=== PATIENT | female | born 2005 | race Caucasian/White ===

== ENCOUNTER 2025-01-12 16:32 | Emergency (ER) | payer SELFPAY ==
[2025-01-12 16:33] VITALS: BP 126/93
[2025-01-12 17:04] VITALS: BMI 19.0
--- NOTE | 2025-01-12 17:20 | ED.GENMED ---
History of Present Illness
General
Chief Complaint: Eye Problems
Source: patient
Time Seen by Provider: 01/12/25 17:11
History of Present Illness
History of Present Illness:
19-year-old female with no significant past medical history presenting to the emergency department for evaluation after she was accidentally kicked in the right eye by a baby foal approximately 30 minutes prior to arrival, initially noted she was
having trouble opening her right eye but states now she is having no trouble opening the eye but does note swelling, ecchymosis and periorbital discomfort. She denies any blurred vision, double vision, headache, loss consciousness, vomiting or any
other injuries. Patient does not wear glasses nor contact lenses. Tetanus vaccine is up-to-date.
Past History
Past History
ED Past Medical History: None
ED Past Surgical History: None
Social History
Tobacco: Non-smoker
Alcohol: None
Drug: None
Personal: Single
Living: with roommate
Employment: Student
Review of Systems
Review of Systems
All Other Systems: ROS reviewed and negative except as documented in HPI and ROS
Phy Exam
Physical Exam
Physical Exam:
GENERAL: Alert , in no apparent distress
EYE: conjunctiva clear, no hyphema, no subconjunctival hemorrhage. There is periorbital ecchymosis that is mostly along the superior orbit as well as the superior eyelid. Both pupils are 4 mm bilateral, PERRL, EOMI, increased discomfort when
looking upwards. Gross vision intact. Fluorescein stain performed which does not show any corneal uptake
Visual Acuity: RIGHT 20/16, LEFT 20/16, BOTH 20/16
Head: Normocephalic atraumatic
NECK: Supple,
ENT: mmm.
LUNGS: no acute respiratory distress
NEUROLOGICAL: Alert and oriented
SKIN: Warm and dry, skin intact.
MUSCULOSKELETAL: well perfused.
PSYCH: Normal and appropriate interaction.
Scores
Heart Failure Risk
Heart Failure Risk Score: Not Applicable
Heart Score for Chest Pain Patients
STEMI patient?: Not applicable
Withdrawal Assessment of Alcohol
Withdrawal Assessment Completed?: Not applicable
Course
Orders/Labs/Results
Orders:
Orders
01/12/25 16:40
CT Orbits W/o Iv Contrast Urgent
Comment:
Reason For Exam: kicked by a horse
01/12/25 18:05
Acetaminophen [Tylenol] 650 mg PO NOW STA
Vital Signs
Initial and Last Documented VS:
Initial Vital Signs
Temp Pulse Resp BP Pulse Ox
98.5 F 105 18 126/93 100
01/12/25 16:33 01/12/25 16:33 01/12/25 16:33 01/12/25 16:33 01/12/25 16:33
Last Documented Vital Signs
Temp Pulse Resp BP Pulse Ox
98.5 F 80 18 114/70 100
01/12/25 16:33 01/12/25 19:14 01/12/25 16:33 01/12/25 19:14 01/12/25 19:14
MDM/Problems Addressed
Differential Diagnosis Includes:
Periorbital contusion, traumatic hyphema, orbital fracture, blowout fracture, vitreous hemorrhage, corneal abrasion
MDM/Problems Addressed:
19-year-old female presenting to the emergency department for evaluation after she was accidentally kicked in the left side of her eye/face, she has mild to moderate right-sided periorbital ecchymosis/edema. No gross visual abnormalities and no
signs of corneal abrasion. Patient declining anything for pain. Will check CT scan of the orbits to further assess. Disposition pending.
*Pulse Oximetry
Patient hypoxic: no
*Critical Care Note
Total Time (30-74mins, 75-104mins- exclusive of procedures): Not Applicable
Patient Management
Escalation/DeEscalation of care consider admission/obs:
No evidence for fracture on CT imaging. Patient advised to remain upright, ice and NSAIDs/tylenol as needed for pain. Aware of return precautions. Stable for discharge home
ED Attending Note
-
Portions of this chart may have been created with voice recognition software.� Occasional wrong word or��sound alike� substitutions may have occurred due to the inherent limitations of voice recognition software.
Discharge Plan
Departure
Patient Disposition: Home (Routine Discharge)
Date of Disposition: 01/12/25
Time of Disposition: 20:02
Patient with high blood pressure during this ER visit?: No
Discharge Problem:
Contusion of right orbit
Instructions: Contusion
Referrals:
NONE,* [Family Provider] -
Interventions
Interventions:
*Risk Screen - Suicide Last Done: 01/12/25 16:37
*General Assessment Last Done: 01/12/25 16:37
*Neglect/Abuse Screening Last Done: 01/12/25 16:37
*ED- Fall Risk Assessment Last Done: 01/12/25 17:04
*ED COVID-19 Vaccine History Last Done: 01/12/25 16:37
*Nursing Disposition Last Done: 01/12/25 20:15
Discharge Date and Time
Discharge Date/Time: 01/12/25 20:15
Print Language: JORDANIAN
[2025-01-12] MEDS: TYLENOL 650 MG PO (18:29)
[2025-01-12 19:14] VITALS: BP 114/70
== END 2025-01-12 20:15 | disposition home or self-care (01) ==
LOC: EMR 16:32
PROVIDERS: EMERGENCY PHYSICIAN Emergency Medicine
DX: S05.11XA Contusion of eyeball and orbital tissues, right eye, initial encounter (principal); W55.12XA Struck by horse, initial encounter
CPT/HCPCS: 99284; 70480; 99283

== ENCOUNTER 2025-01-14 09:53 | Emergency (ER) | payer SELFPAY ==
[2025-01-14 09:55] VITALS: BP 122/74
[2025-01-14 10:25] VITALS: BP 116/86
--- NOTE | 2025-01-14 10:31 | ED.GENMED ---
History of Present Illness
General
Chief Complaint: Head Injury
Source: patient
Exam Limitations: none
Time Seen by Provider: 01/14/25 10:22
History of Present Illness
History of Present Illness:
See MDM
Past History
Past History
ED Past Medical History: None
ED Past Surgical History: None
Social History
Tobacco: Non-smoker
Alcohol: None
Drug: None
Personal: Single
Living: with roommate
Employment: Student
Phy Exam
Physical Exam
Physical Exam:
See MDM
Course
Orders/Labs/Results
Orders:
Orders
01/14/25 10:28
CT Head W/o Iv Contrast Urgent
Comment:
Reason For Exam: recent head injury, persistent headache
Ibuprofen [Motrin] 600 mg PO NOW STA
Ondansetron Orally Disint [Zofran Odt (Orally Disintegrating)] 4 mg PO NOW STA
Vital Signs
Initial and Last Documented VS:
Initial Vital Signs
Temp Pulse Resp BP Pulse Ox
98.0 F 66 18 122/74 100
01/14/25 09:55 01/14/25 09:55 01/14/25 09:55 01/14/25 09:55 01/14/25 09:55
Last Documented Vital Signs
Temp Pulse Resp BP Pulse Ox
98.0 F 62 15 116/86 100
01/14/25 09:55 01/14/25 10:25 01/14/25 10:25 01/14/25 10:25 01/14/25 10:25
MDM/Problems Addressed
Differential Diagnosis Includes:
HPI and MDM Narrative:
19-year-old female presenting with persistent headache. Patient was recently evaluated after she got kicked in the face by a horse. Since majority of the injury was around her right orbit, she had a CT of her orbits which was negative. Due to
persistent headache, she came back. Patient complains of headache and nausea believe she has another concussion. Given the injury and persistent symptoms, will obtain CT
Physical exam
General: Well appearing and non-toxic
HEENT: protecting airway. Pupils equal reactive. Bruising noted around right orbit. No proptosis
Neck: supple
CV: No evidence of cyanosis
Resp: No accessory muscle use
Abd: Non-distended
Extremities: No deformities
Neuro: alert
Psych: Normal affect
Skin: Intact
Problems Addressed including Acute and Chronic Conditions affecting care:
1. Persistent headache after trauma
Acuity: acute
Prognosis: stable
Details: We discussed likely concussion but will obtain CT to rule out any evidence of skull fracture or hemorrhage
Updates
CT head negative. Discussed return precautions
Differential Diagnosis (but not limited to): Concussion, skull fracture, tension headache
Testing considered: CT neck with there is no tenderness elicited
Drug therapy (if applicable): OTC meds, please see d/c instruction regarding Rx drugs
Amount and/or Complexity of Data Reviewed
Clinical info obtained from: Patient
External data reviewed: N/A
Labs I independently reviewed (but not limited to): N/A
Radiology: The CT scan was personally and independently reviewed. In addition, official CT report reviewed.
Pulse Ox: not hypoxic
EKG independently reviewed: N/A
Lead Instructor/Flight Attendant: N/A
Critical Care: N/A
Risk of Complication:
Social Determinants of health: Good social support
Discussed with other providers: N/A
Escalation of Care includes Admit/Obs: After being observed in the Emergency Department, pt stable for discharge.
Occasional wrong word or 'sound a like' substitutions may have occurred due to the inherent limitations of voice recognition software. Read the chart carefully and recognize, using context, where substitutions have occurred.
*Critical Care Note
Total Time (30-74mins, 75-104mins- exclusive of procedures): Not Applicable
ED Attending Note
-
Portions of this chart may have been created with voice recognition software.� Occasional wrong word or��sound alike� substitutions may have occurred due to the inherent limitations of voice recognition software.
Discharge Plan
Departure
Patient Disposition: Home (Routine Discharge)
Date of Disposition: 01/14/25
Time of Disposition: 12:31
Patient with high blood pressure during this ER visit?: No
Discharge Problem:
Concussion
Instructions: Concussion, Adult (DC)
Prescriptions:
New
ondansetron 4 mg Tablet,Disintegrating
4 mg PO BIDPRN PRN (Reason: nausea/vomiting) Qty: 10 0RF
Referrals:
NONE,* [Family Provider] -
Stand Alone Forms: Back to School
Activity Restrictions/Additional Instructions:
Please return for any worsening symptoms.
You may return at any time if you have further concerns.
Please follow up with your doctor at the first available appointment, preferably this week.
Thank you for choosing [facility].
Interventions
Interventions:
*Risk Screen - Suicide Last Done: 01/14/25 09:55
*General Assessment Last Done: 01/14/25 09:55
*Neglect/Abuse Screening Last Done: 01/14/25 10:26
*ED- Fall Risk Assessment Last Done: 01/14/25 10:30
*ED COVID-19 Vaccine History Last Done: 01/14/25 10:30
ED- Neurological Assessment Last Done: 01/14/25 10:26
ED-Skin Assessment Last Done: 01/14/25 10:26
Discharge Date and Time
Print Language: LITHUANIAN
[2025-01-14] MEDS: ZOFRAN ODT (ORALLY DISINTEGRATING) 4 MG PO (10:34)
[2025-01-14] MEDS: MOTRIN 600 MG PO (10:35)
== END 2025-01-14 13:04 | disposition home or self-care (01) ==
LOC: EMR 09:53
PROVIDERS: EMERGENCY PHYSICIAN Student in an Organized Health Care Education/Training Program
DX: S06.0XAA Concussion with loss of consciousness status unknown, initial encounter (principal); W55.12XA Struck by horse, initial encounter
CPT/HCPCS: 99283; 70450